=== PATIENT | female | born 1975 | race Caucasian/White ===

== ENCOUNTER 2021-10-09 12:48 | Emergency (ER) | payer OTHER ==
[~2021-10-09] VITALS: Ht 167.6 cm; Wt 115.7 kg
[~2021-10-09 12:48] MED LIST: CLARITIN10 MG PO; COLACE 100MG C100 MG PO; ESTRADIOL0.5 MG PO; IBUPROFEN600 MG PO; PERCOCET 10-321 EACH PO; PERCOCET 5/325 T1 EA PO; SINGULAIR10 MG PO; ZOFRAN4 MG PO
[2021-10-09 15:01] LABS: HEMOGLOBIN 14.9 gm/dl (12.3-15.3); RED BLOOD COUNT 4.99 M/UL (4.00-5.10); WHITE BLOOD COUNT 9.4 K/UL (4.5-11.0)
[2021-10-09 15:29] LABS: BUN/CREATININE RATIO 14 (0-10)
[2021-10-09] MEDS ORDERED: DELSYM30 MG/5 ML PO (16:37)
[2021-10-09] MEDS ORDERED: NAPROXEN500 MG PO (16:37)
== END 2021-10-09 17:10 | disposition home or self-care (01) ==
LOC: ER1 12:48
PROVIDERS: Physician Assistant Medical
DX: U07.1 COVID-19 (principal); R07.81 Pleurodynia; E11.9 Type 2 diabetes mellitus without complications; Z87.442 Personal history of urinary calculi; Z79.84 Long term (current) use of oral hypoglycemic drugs; Z90.710 Acquired absence of both cervix and uterus; Z90.49 Acquired absence of other specified parts of digestive tract; Z88.2 Allergy status to sulfonamides
CPT/HCPCS: 71045; 80053; 81001; 82550; 82553; 83605; 83874; 84484; 85025; 85610; 93005; 99284; Q9967